=== PATIENT | male | born 1935 | race Caucasian/White ===

== ENCOUNTER 2016-04-25 10:04 | Emergency (ER) | payer MEDICARE ==
[~2016-04-25] VITALS: Ht 185.4 cm; Wt 74.5 kg
[~2016-04-25 10:04] MED LIST: AMOX875T PO; NAPR550 PO; PERC10TA27 PO; PRED20 PO
[2016-04-25 10:10] VITALS: BP 137/94; PULSE 97; RESP 16; TEMP 99.1; O2SAT 95
[2016-04-25] MEDS ORDERED: RESP: ALBUTEROL 2.5 MG/IPRATROPIUM 0.5 MG NEB (SCH) INH ONE (10:30)
[2016-04-25] MEDS ORDERED: SODIUM CHLORIDE 0.9% FLUSH 5 ML FLUSH IVF PRN (10:30)
[2016-04-25] MEDS ORDERED: methylPREDNISolone SOD SUCC 125 MG/2 ML VIAL IV ONE (10:30)
--- NOTE | 2016-04-25 10:37 | PD ---
HPI Chief Complaint: Cold / Flu Symptoms Time Seen by Provider: 10:26 Travel History International Travel<30 days: No Contact w/Intl Traveler<30days: No Traveled to known affect area: No History of Present Illness HPI Patient is an 80-year-old male who presents to emergency room with his for evaluation of increased cough and congestion and myalgias for the past 2-3 days. Patient reports that 2-3 days ago, he began to have a productive cough with increased nasal congestion and post nasal drip. Reports that symptoms have been progressing and have been getting worse over the past few days, reports that he is coughing so much, he cannot get any good sleep. Reports no fevers, reports chills. Reports no sick contacts. Reports that he did receive flu vaccine this year. PFSH Past Surgical History Other Surgery: Yes (HIATAL HERNIA) Social History Alcohol Use: Yes Tobacco Use: No Substance Use: No Allergies-Medications (Allergen,Severity, Reaction): Coded Allergies: Tetanus Toxoid (Verified Allergy, Mild, 04/25/16) Reported Meds & Prescriptions Reported Meds & Active Scripts Active Proair Hfa 8.5 GM Inh (Albuterol Sulfate) 90 Mcg/Act Aer 2 Puff INH Q4-6H PRN 108 mcg/actuation Prednisone 20 Mg Tab 20 Mg PO BID 5 Days Promethazine-Codeine Liq 6.25-10 Mg/5 Ml Syrp 5 Ml PO Q6H PRN 10 Days Tessalon Perles (Benzonatate) 100 Mg Cap 100 Mg PO TID PRN Azithromycin 500 Mg Tab 500 Mg PO DAILY Review of Systems General / Constitutional: Positive: Chills, No: Fever Eyes: No: Visual changes HENT: No: Headaches Cardiovascular: No: Chest Pain or Discomfort Respiratory: Positive: Cough, No: Shortness of Breath Gastrointestinal: No: Abdominal Pain Genitourinary: No: Dysuria Musculoskeletal: No: Pain Skin: No Rash Neurologic: No: Weakness Psychiatric: No: Depression Endocrine: No: Polydipsia Hematologic/Lymphatic: No: Easy Bruising Physical Exam Narrative GENERAL: Mild distress SKIN: Warm and dry. HEAD: Atraumatic. Normocephalic. EYES: Pupils equal and round. No scleral icterus. No injection or drainage. ENT: No nasal bleeding or discharge. Mucous membranes pink and moist. NECK: Trachea midline. No JVD. CARDIOVASCULAR: Regular rate and rhythm. No murmur appreciated. RESPIRATORY: No accessory muscle use. Clear to auscultation. Breath sounds equal bilaterally. GASTROINTESTINAL: Abdomen soft, non-tender, nondistended. Hepatic and splenic margins not palpable. MUSCULOSKELETAL: No obvious deformities. No clubbing. No cyanosis. No edema. NEUROLOGICAL: Awake and alert. No obvious cranial nerve deficits. Motor grossly within normal limits. Normal speech. PSYCHIATRIC: Appropriate mood and affect; insight and judgment normal. Data Data Last Documented VS Vital Signs Date Time Temp Pulse Resp B/P Pulse Ox O2 Delivery O2 Flow Rate FiO2 04/25/16 12:25 86 20 123/84 93 04/25/16 10:10 99.1 Orders Complete Blood Count With Diff (04/25/16 10:30) Comprehensive Metabolic Panel (04/25/16 10:30) Influenzae A/B Antigen (04/25/16 10:30) Urinalysis - C+S If Indicated (04/25/16 10:30) Blood Culture (04/25/16 10:30) Chest, Single Ap (04/25/16 10:30) Iv Access Insert/Monitor (04/25/16 10:30) Oximetry (04/25/16 10:30) Sodium Chloride 0.9% Flush (Ns Flush) (04/25/16 10:30) Albuterol-Ipratropium Neb (Duoneb Neb) (04/25/16 10:30) Methylprednisolone So Succ Inj (Solumedr (04/25/16 10:30) Ceftriaxone Inj (Rocephin Inj) (04/25/16 11:45) Azithromycin Inj (Zithromax Inj) (04/25/16 11:45) Labs Laboratory Tests Test 04/25/16 04/25/16 10:30 13:00 White Blood Count 9.9 TH/MM3 Red Blood Count 5.47 MIL/MM3 Hemoglobin 17.1 GM/DL Hematocrit 51.9 % Mean Corpuscular Volume 94.8 FL Mean Corpuscular Hemoglobin 31.3 PG Mean Corpuscular Hemoglobin 33.0 % Concent Red Cell Distribution Width 12.0 % Platelet Count 149 TH/MM3 Mean Platelet Volume 8.1 FL Neutrophils (%) (Auto) 81.0 % Lymphocytes (%) (Auto) 9.9 % Monocytes (%) (Auto) 8.3 % Eosinophils (%) (Auto) 0.6 % Basophils (%) (Auto) 0.2 % Neutrophils # (Auto) 8.0 TH/MM3 Lymphocytes # (Auto) 1.0 TH/MM3 Monocytes # (Auto) 0.8 TH/MM3 Eosinophils # (Auto) 0.1 TH/MM3 Basophils # (Auto) 0.0 TH/MM3 CBC Comment DIFF FINAL Differential Comment Sodium Level 142 MEQ/L Potassium Level 4.1 MEQ/L Chloride Level 104 MEQ/L Carbon Dioxide Level 30.6 MEQ/L Anion Gap 7 MEQ/L Blood Urea Nitrogen 11 MG/DL Creatinine 1.10 MG/DL Estimat Glomerular Filtration 64 ML/MIN Rate Random Glucose 128 MG/DL Calcium Level 8.5 MG/DL Total Bilirubin 0.9 MG/DL Aspartate Amino Transf 16 U/L (AST/SGOT) Alanine Aminotransferase 16 U/L (ALT/SGPT) Alkaline Phosphatase 77 U/L Total Protein 6.9 GM/DL Albumin 3.3 GM/DL Urine pH 7.0 Urine Protein NEG mg/dL Urine Glucose (UA) NEG mg/dL Urine Ketones NEG mg/dL Urine Occult Blood NEG Urine Nitrite NEG Urine Bilirubin NEG Urine Leukocyte Esterase NEG MDM Medical Decision Making Medical Screen Exam Complete: Yes Emergency Medical Condition: Yes Interpretation(s) Vital Signs Date Time Temp Pulse Resp B/P Pulse Ox O2 Delivery O2 Flow Rate FiO2 04/25/16 10:10 99.1 97 16 137/94 95 Differential Diagnosis Influenza, pneumonia, viral syndrome Narrative Course Patient is an 80-year-old male who presents to emergency room from home for evaluation of increased cough, congestion, myalgias for the past 2-3 days. Patient reports that he has had no fevers, reports that he has been having increased myalgias. Reports no sick contacts or recent travels or trips. Patient reports concerns that he may have pneumonia versus influenza. Overall, patient nontoxic upon her presentation to emergency room. Vital signs are stable Vital Signs Date Time Temp Pulse Resp B/P Pulse Ox O2 Delivery O2 Flow Rate FiO2 04/25/16 10:10 99.1 97 16 137/94 95 Plan to obtain lab work as well as x-ray of the chest, blood cultures ordered. Will give patient a dose of IV steroids as well as neb treatment. We'll check for influenza WBC 9.9 Hemoglobin 17.1 Hematocrit 51.9 Platelets 149 Sodium 142 Chloride 104 Potassium 4.1 Carbon dioxide 30.6 BUN 11 Creatinine 1.10 Glucose 128 Influenza A and B antigen: Negative X-ray of the chest shows: Increased soft tissue density over her lower chest, elevation left hemidiaphragm, large hiatal hernia, cardiomegaly Patient with most likely acute bronchitis at this time, patient has been pancultured, will treat with antibiotics. Patient will follow-up with primary care doctor and return to emergency room as needed. Patient will follow up with cultures from today. Patient understands need to return to emergency room if symptoms progress or worsen. Patient re-evaluated, patient reports that he is feeling much better, dc instructions reviewed with patient and his in detail. Patient understands when to follow up with pcp and when to return to ER Diagnosis Primary Impression: Bronchitis Patient Instructions: General Instructions Additional Instructions: Please follow up with your primary care doctor in 2-3 days Please follow up with all cultures from today Return to ER if symptoms worsen or progress Please take all antibiotics as prescribed Return to ER as needed Med/Other Pt SpecificInfo: Prescription(s) given Scripts Albuterol 8.5 GM Inh (Proair Hfa 8.5 GM Inh)90 Mcg/Act Aer2 Puff INH Q4-6H PRN ( SHORTNESS OF BREATH) #1 INHALER Ref 0 108 mcg/actuation Prov:Isabel Oconnor DO 04/25/16 Prednisone 20 Mg Tab20 Mg PO BID 5 Days Ref 0 Prov:Isabel Oconnor DO 04/25/16 Promethazine-Codeine Liq 6.25-10 Mg/5 Ml Syrp5 Ml PO Q6H PRN (COUGH AND/OR COLD SYMPTOMS) 10 Days Ref 0 Prov:Isabel Oconnor DO 04/25/16 Benzonatate (Tessalon Perles)100 Mg Qth147 Mg PO TID PRN (COUGH) #30 CAP Ref 0 Prov:Isabel Oconnor DO 04/25/16 Azithromycin 500 Mg [id number] Mg PO DAILY #7 TAB Ref 0 Prov:Isabel Oconnor DO 04/25/16 Disposition: 01 DISCHARGE HOME Condition: Stable Isabel Oconnor DO Apr 25, 2016 10:37
[2016-04-25 10:48] VITALS: O2SAT 95
[2016-04-25 10:54] LABS: BASOPHIL % 0.2 % (0.0-2.0); EOSINOPHIL # 0.1 TH/MM3 (0-0.4); EOSINOPHIL % 0.6 % (0.0-4.0); HEMATOCRIT 51.9 % (39.0-51.0); HEMO FLAGS DIFF FINAL; LYMPH % 9.9 % (9.0-44.0); MEAN CELL VOLUME 94.8 FL (80.0-100.0); MEAN CORPUSCULAR HEMOGLOBIN 31.3 PG (27.0-34.0); MONO % 8.3 % (0.0-8.0); PLATELET COUNT 149 TH/MM3 (150-450); RED BLOOD COUNT 5.47 MIL/MM3 (4.50-5.90); WHITE BLOOD COUNT 9.9 TH/MM3 (4.0-11.0)
[2016-04-25 11:01] LABS: CHLORIDE 104 MEQ/L (98-107); POTASSIUM 4.1 MEQ/L (3.5-5.1); SODIUM (NA) 142 MEQ/L (136-145)
[2016-04-25 11:05] LABS: ANION GAP 7 MEQ/L (5-15); BICARBONATE 30.6 MEQ/L (21.0-32.0); BLOOD UREA NITROGEN 11 MG/DL (7-18)
--- NOTE | 2016-04-25 11:06 | RADHPO ---
EXAM DATE/TIME: 04/25/2016 10:42 [facility] COMPARISON: No previous studies available for comparison. INDICATIONS : Cough, short of breath, fever MEDICAL HISTORY : Hiatal hernia. SURGICAL HISTORY : None. ENCOUNTER: Initial ACUITY: 2 days PAIN SCORE: 0/10 LOCATION: Bilateral chest FINDINGS: There is increased soft-tissue density seen over the lower chest. There are areas of air seen within these regions. This suggests there is likely a large hiatal hernia. Some degree of elevation of th e left hemidiaphragm and cardiomegaly may also be contributing to this appearance. There is some min imal increased density at the left base likely representing some minimal atelectasis. The right lung is clear. CONCLUSION: Increased density over the lower central right chest likely representing a combination of the large h iatal hernia, elevation of the left hemidiaphragm and some degree of potential cardiomegaly. Nils Bass MD on April 25, 2016 at 11:01 Board Certified Radiologist. This report was verified electronically.
[2016-04-25 11:08] LABS: ALT (GPT) 16 U/L (12-78); AST (GOT) 16 U/L (15-37); GLOMERULAR FILTRATION RATE 64 ML/MIN (>89)
[2016-04-25 11:10] LABS: TOTAL BILIRUBIN ADULT 0.9 MG/DL (0.2-1.0)
[2016-04-25 11:11] LABS: ALKALINE PHOSPHATASE 77 U/L (45-117)
[2016-04-25 11:31] VITALS: BP 135/79; PULSE 95; RESP 20; O2SAT 93
[2016-04-25] MEDS ORDERED: AZITHROMYCIN INJ 500 MG in SODIUM CHLOR 0.9% 250 ML INJ 250 ML IV ONE (11:45)
[2016-04-25] MEDS ORDERED: cefTRIAXone INJ 1,000 MG in SODIUM CHLORIDE 0.9% INJ 100 ML IV ONE (11:45)
[2016-04-25] MEDS ORDERED: PRED20 PO (12:22)
[2016-04-25] MEDS ORDERED: BENZ100 PO (12:22)
[2016-04-25] MEDS ORDERED: PROM6.256 PO (12:22)
[2016-04-25] MEDS ORDERED: AZIT500T2 PO (12:22)
[2016-04-25] MEDS ORDERED: ALBUAER3 INH (12:23)
[2016-04-25 12:25] VITALS: BP 123/84; PULSE 86; RESP 20; O2SAT 93
[2016-04-25 13:10] LABS: BLOOD, URINE NEG (NEG); GLUCOSE,URINE NEG (NEG); KETONE, URINE NEG (NEG); NITRITE,URINE NEG (NEG)
[2016-04-25 13:25] VITALS: BP 127/81; PULSE 78; RESP 20; O2SAT 93
[2016-04-25 13:40] LABS: METHOD OF COLLECTION CLEAN CATCH; URINE COLOR YELLOW (YELLW/STRAW)
[2016-04-25 13:41] LABS: COMMENT (UR) CULT NOT INDICATED; CULTURE IF INDICATED CULT NOT INDICATED; SQUAMOUS EPITHELIAL CELL URINE 0-5 /hpf (0-5)
== END 2016-04-25 13:58 | disposition home or self-care (01) ==
LOC: PHED 10:04
DX: J40 Bronchitis, not specified as acute or chronic (principal)
CPT/HCPCS: 71010; 80053; 81001; 85025; 87040; 87804; 94664; 96365; 96375; 99283; J0456; J0696; J2930; J7050

== ENCOUNTER 2017-04-01 15:18 | Emergency (ER) | payer MEDICARE ==
[~2017-04-01] VITALS: Ht 185.4 cm; Wt 72.0 kg
[~2017-04-01 15:18] MED LIST changes: +ALBUAER3 INH; -AMOX875T PO; +AZIT500T2 PO; +BENZ100 PO; -NAPR550 PO; -PERC10TA27 PO; +PROM6.256 PO
[2017-04-01 15:23] VITALS: BP 128/75; PULSE 96; RESP 16; TEMP 99.8; O2SAT 93
[2017-04-01] MEDS ORDERED: SODIUM CHLORID 0.9% 500 ML INJ 500 ML IV ONE (16:30)
[2017-04-01] MEDS ORDERED: KETOROLAC TROMETHAMINE 30 MG/ML (IVP) VIAL IV PUSH ONE (16:30)
[2017-04-01 16:42] LABS: AUTOMATED NEUTROPHIL # 5.8 TH/MM3 (1.8-7.7); BASOPHIL # 0.1 TH/MM3 (0-0.2); BASOPHIL % 0.9 % (0.0-2.0); EOSINOPHIL # 0.1 TH/MM3 (0-0.4); EOSINOPHIL % 1.1 % (0.0-4.0); HEMATOCRIT 48.4 % (39.0-51.0); HEMOGLOBIN 15.9 GM/DL (13.0-17.0); LYMPH % 12.2 % (9.0-44.0); LYMPHOCYTE # 0.9 TH/MM3 (1.0-4.8); MEAN CELL VOLUME 95.9 FL (80.0-100.0); MEAN CORPUSCULAR HEMOGLOBIN 31.4 PG (27.0-34.0); MEAN CORPUSCULAR HGB CONC 32.7 % (32.0-36.0); MONO % 7.9 % (0.0-8.0); MONOCYTE # 0.6 TH/MM3 (0-0.9); NEUT % 77.9 % (16.0-70.0); PLATELET COUNT 140 TH/MM3 (150-450); RED BLOOD COUNT 5.05 MIL/MM3 (4.50-5.90); RED CELL DISTRIBUTION WIDTH 11.6 % (11.6-17.2); WHITE BLOOD COUNT 7.5 TH/MM3 (4.0-11.0)
--- NOTE | 2017-04-01 16:47 | RADRPT ---
EXAM DATE/TIME: 04/01/2017 16:33 [facility] COMPARISON: CHEST SINGLE AP, April 25, 2016, 10:42. INDICATIONS : Chest pain, cough, shortness of breath, and congestion. MEDICAL HISTORY : Hiatal hernia. SURGICAL HISTORY : None. ENCOUNTER: Initial ACUITY: 2 days PAIN SCORE: 4/10 LOCATION: Bilateral chest FINDINGS: Minimal parenchymal opacities at the left lung base likely reflect atelectasis/scarring. The cardiome diastinal contours are unremarkable. Large hiatal hernia. Osseous structures are intact. CONCLUSION: 1. Large hiatal hernia. 2. Minimal left lung base atelectasis/scarring. Darío Merchant MD on April 01, 2017 at 16:45 Board Certified Radiologist. This report was verified electronically.
[2017-04-01 16:52] LABS: CHLORIDE 107 MEQ/L (98-107); SODIUM (NA) 140 MEQ/L (136-145)
--- NOTE | 2017-04-01 16:54 | PD ---
HPI Chief Complaint: Cold / Flu Symptoms Time Seen by Provider: 16:13 Travel History International Travel<30 days: No Contact w/Intl Traveler<30days: No Traveled to known affect area: No History of Present Illness HPI Patient is an 81 year old male who comes in complaining of cough, congestion, shoulder pain and fever. He says his symptoms started last night. He says he had a temperature of 99.9 last night. He has not taken anything for his symptoms. Nothing seems to make his symptoms better or worse. He denies shortness of breath. He denies chest pain, abdominal pain, nausea or vomiting. He did have a flu vaccine this year. Severity is mild to moderate. [facility] Past Medical History Immunizations Current: Yes Influenza Vaccination: Yes Past Surgical History Other Surgery: Yes (HIATAL HERNIA) Social History Alcohol Use: Yes (daily) Tobacco Use: No Substance Use: No Allergies-Medications (Allergen,Severity, Reaction): Coded Allergies: tetanus toxoid, adsorbed (Unverified Allergy, Mild, 04/01/17) Reported Meds & Prescriptions Reported Meds & Active Scripts Active Review of Systems Except as stated in HPI: all other systems reviewed are Neg General / Constitutional: Positive: Fever HENT: Positive: Congestion, No: Headaches, Lightheadedness Cardiovascular: No: Chest Pain or Discomfort Respiratory: Positive: Cough, No: Shortness of Breath Gastrointestinal: No: Nausea, Vomiting Musculoskeletal: Positive: Myalgias, No: Edema Skin: No Rash, No Change in Pigmentation Neurologic: No: Weakness, Dizziness Physical Exam Narrative GENERAL: Awake and alert, in no acute distress. SKIN: Focused skin assessment warm/dry. No wounds or signs of infection. HEAD: Atraumatic. Normocephalic. EYES: Pupils equal and round. No scleral icterus. ENT: Mucous membranes pink and moist. NECK: Trachea midline. No JVD. CARDIOVASCULAR: Regular rate and rhythm. No murmur appreciated. RESPIRATORY: No accessory muscle use. Clear to auscultation. Breath sounds equal bilaterally. GASTROINTESTINAL: Abdomen soft, non-tender, nondistended. MUSCULOSKELETAL: No obvious deformities. No clubbing. No cyanosis. No edema. NEUROLOGICAL: Awake and alert. No obvious cranial nerve deficits. Motor grossly within normal limits. Normal speech. PSYCHIATRIC: Appropriate mood and affect; insight and judgment normal. Data Data Last Documented VS Vital Signs Date Time Temp Pulse Resp B/P (MAP) Pulse Ox O2 Delivery O2 Flow Rate FiO2 04/01/17 17:13 84 18 123/78 (93) 95 Room Air 04/01/17 15:23 99.8 Orders Orders Complete Blood Count With Diff (04/01/17 16:17) Comprehensive Metabolic Panel (04/01/17 16:17) Chest, Pa & Lat (04/01/17 ) Sodium Chlorid 0.9% 500 Ml Inj (Ns 500 M (04/01/17 16:30) Ketorolac Inj (Toradol Inj) (04/01/17 16:30) Influenzae A/B Antigen (04/01/17 16:17) Electrocardiogram (04/01/17 ) Troponin I (04/01/17 16:17) Iv Access Insert/Monitor (04/01/17 16:17) Labs Laboratory Tests Test 04/01/17 16:29 White Blood Count 7.5 TH/MM3 Red Blood Count 5.05 MIL/MM3 Hemoglobin 15.9 GM/DL Hematocrit 48.4 % Mean Corpuscular Volume 95.9 FL Mean Corpuscular Hemoglobin 31.4 PG Mean Corpuscular Hemoglobin Concent 32.7 % Red Cell Distribution Width 11.6 % Platelet Count 140 TH/MM3 Mean Platelet Volume 8.0 FL Neutrophils (%) (Auto) 77.9 % Lymphocytes (%) (Auto) 12.2 % Monocytes (%) (Auto) 7.9 % Eosinophils (%) (Auto) 1.1 % Basophils (%) (Auto) 0.9 % Neutrophils # (Auto) 5.8 TH/MM3 Lymphocytes # (Auto) 0.9 TH/MM3 Monocytes # (Auto) 0.6 TH/MM3 Eosinophils # (Auto) 0.1 TH/MM3 Basophils # (Auto) 0.1 TH/MM3 CBC Comment DIFF FINAL Differential Comment Blood Urea Nitrogen 12 MG/DL Creatinine 1.00 MG/DL Random Glucose 98 MG/DL Total Protein 6.6 GM/DL Albumin 3.3 GM/DL Calcium Level 8.1 MG/DL Alkaline Phosphatase 75 U/L Aspartate Amino Transf (AST/SGOT) 21 U/L Alanine Aminotransferase (ALT/SGPT) 19 U/L Total Bilirubin 0.6 MG/DL Sodium Level 140 MEQ/L Potassium Level 3.8 MEQ/L Chloride Level 107 MEQ/L Carbon Dioxide Level 26.5 MEQ/L Anion Gap 7 MEQ/L Estimat Glomerular Filtration Rate 72 ML/MIN Troponin I LESS THAN 0.02 NG/ML MDM Medical Decision Making Medical Screen Exam Complete: Yes Emergency Medical Condition: Yes Medical Record Reviewed: Yes Differential Diagnosis influenza vs pneumonia vs URI Narrative Course Patient is an 81-year-old male who comes in complaining of cough, cold, fever. Exam shows no acute abnormalities. I establish, labs sent. Labs show no acute abnormalities. Chest x-ray shows a minimal opacity, which could be atelectasis versus scarring. Based on patient's symptoms, will treat with a Z-Hermes as well as Tamiflu. Patient advised to follow-up with his primary care doctor. Advised to drink fluids and take Tylenol or ibuprofen as needed for pain or fever. Advised to return to the ED as needed for any worsening symptoms. Last 24 hours Impressions Chest X-Ray 04/01/17 0000 Signed Impressions: Service Date/Time: March 16:33 - CONCLUSION: 1. Large hiatal hernia. 2. Minimal left lung base atelectasis/scarring. Darío Merchant MD Diagnosis Primary Impression: Cough Additional Impression: Fever Qualified Codes: R50.9 - Fever, unspecified Patient Instructions: Acute Cough (ED), General Instructions, Viral Syndrome ( ED) Additional Instructions: Drink plenty of fluids. Take Tylenol as needed for pain or fever. Take all of your antibiotic as well as Tamiflu. Follow up with a primary care doctor. Return to the ED as needed for any worsening symptoms. Scripts Oseltamivir (Tamiflu) 75 Mg Cap 75 MG PO BID for Mgmt Viral Infection for 5 Days, #10 CAP 0 Refills Prov: Mayra Cole MD 04/01/17 Azithromycin (Zithromax Z-Hermes) 250 Mg Dspk 250 MG PO DIRECTED for Infection, #1 DSPK 0 Refills 500 MG (2 tabs) day 1, then 1 tab days 2-5. Prov: Mayra Cole MD 04/01/17 Disposition: 01 DISCHARGE HOME Condition: Stable Mayra Cole MD Apr 01, 2017 16:54
[2017-04-01 16:55] LABS: CALCIUM 8.1 MG/DL (8.5-10.1)
[2017-04-01 16:56] LABS: ALBUMIN 3.3 GM/DL (3.4-5.0); BICARBONATE 26.5 MEQ/L (21.0-32.0); BLOOD UREA NITROGEN 12 MG/DL (7-18); GLUCOSE,RANDOM 98 MG/DL (74-106)
[2017-04-01 16:59] LABS: ALT (GPT) 19 U/L (12-78); AST (GOT) 21 U/L (15-37); GLOMERULAR FILTRATION RATE 72 ML/MIN (>89)
[2017-04-01 17:00] LABS: TOTAL BILIRUBIN ADULT 0.6 MG/DL (0.2-1.0)
[2017-04-01 17:01] LABS: TOTAL PROTEIN 6.6 GM/DL (6.4-8.2)
[2017-04-01 17:02] LABS: ALKALINE PHOSPHATASE 75 U/L (45-117)
[2017-04-01 17:04] LABS: TROPONIN I LESS THAN 0.02 NG/ML (0.02-0.05)
[2017-04-01 17:13] VITALS: BP 123/78; PULSE 84; RESP 18; O2SAT 95
[2017-04-01 17:48] VITALS: RESP 17
[2017-04-01] MEDS ORDERED: ZITHTAB PO (18:13)
[2017-04-01] MEDS ORDERED: OSEL75 PO (18:13)
[2017-04-01 18:24] VITALS: BP 122/71
--- NOTE | 2017-04-03 00:46 | EKG ---
Date Performed: 04/01/2017 Time Performed: 17:06:39 PTAGE: 81 years EKG: Sinus rhythm LEFT ATRIAL ENLARGEMENT POSSIBLE RIGHT VENTRICULAR CONDUCTION DELAY ABNORMAL ECG PREVIOUS TRACING : 06/16/1993 12.46 Since the prior tracing, there has been no significant grigsby DOCTOR: Abril Montemayor Interpretating Date/Time 04/03/2017 00:45:10
== END 2017-04-01 18:28 | disposition home or self-care (01) ==
LOC: PHED 15:18
DX: R05 Cough (principal); R50.9 Fever, unspecified; R94.31 Abnormal electrocardiogram [ECG] [EKG]
CPT/HCPCS: 71046; 80053; 84484; 85025; 87804; 93005; 96361; 96374; 99285; J1885; J7040